=== PATIENT | female | born 1955 | race Asian ===

== ENCOUNTER 2017-07-31 08:08 | Outpatient (CLI) | payer OTHER ==
[~2017-07-31 08:08] MED LIST: ACET5TAB36 PO; CLOP75TA2 PO; CYCL10TA35 PO; FURO40TA93 PO; METO100T37 PO; SIMV40TA57
== END 2017-07-31 23:33 | disposition home or self-care (01) ==
LOC: MAMMO 08:08
DX: Z12.31 Encounter for screening mammogram for malignant neoplasm of breast (principal)

== ENCOUNTER 2017-09-29 11:15 | Outpatient (CLI) | payer OTHER ==
[2017-09-29 11:38] LABS: PLATELET COUNT 219 K/uL (152-353)
[2017-09-29 11:53] LABS: POTASSIUM 4.4 mmol/L (3.6-5.2)
[2017-09-29 12:25] LABS: PARTIAL THROMBOPLASTIN TIME 22.2 SECONDS (24.5-33.6)
== END 2017-09-29 20:02 | disposition home or self-care (01) ==
LOC: LABW 11:15
PROVIDERS: Family Medicine
DX: R58 Hemorrhage, not elsewhere classified (principal); I10 Essential (primary) hypertension; R79.1 Abnormal coagulation profile; R79.89 Other specified abnormal findings of blood chemistry
CPT/HCPCS: 36415; 80053; 81000; 83540; 83550; 85027; 85610; 85730

== ENCOUNTER 2017-10-30 11:51 | Outpatient (CLI) | payer OTHER | END 2017-10-30 19:27 | disposition home or self-care (01) | LOC: US 11:51 | DX: M79.601 Pain in right arm (principal) ==

== ENCOUNTER 2018-07-19 08:28 | Outpatient (CLI) | payer OTHER | END 2018-07-19 18:58 | disposition home or self-care (01) | LOC: CT 08:28 | DX: R07.1 Chest pain on breathing (principal) | CPT/HCPCS: 36415; 82565; 84520; Q9963 ==

== ENCOUNTER 2018-08-19 09:18 | Outpatient (CLI) | payer OTHER | END 2018-08-19 23:16 | disposition home or self-care (01) | LOC: MAMMO 09:18 | DX: Z12.31 Encounter for screening mammogram for malignant neoplasm of breast (principal) ==

== ENCOUNTER 2018-12-29 10:03 | Outpatient (CLI) | payer OTHER | END 2018-12-29 23:46 | disposition home or self-care (01) | LOC: RESP 10:03 | DX: R06.02 Shortness of breath (principal) | CPT/HCPCS: 93005 ==

== ENCOUNTER 2019-04-26 12:37 | Outpatient (CLI) | payer OTHER | END 2019-04-26 20:13 | disposition home or self-care (01) | LOC: NM 12:37 | DX: R10.11 Right upper quadrant pain (principal) | CPT/HCPCS: A9537 ==

== ENCOUNTER 2019-06-09 07:09 | Outpatient (CLI) | payer OTHER | END 2019-06-09 19:10 | disposition home or self-care (01) | LOC: RAD 07:09 | DX: J43.2 Centrilobular emphysema (principal) ==

== ENCOUNTER 2019-08-30 08:03 | Outpatient (CLI) | payer OTHER | END 2019-08-30 19:58 | disposition home or self-care (01) | LOC: MAMMO 08:03 | DX: Z12.31 Encounter for screening mammogram for malignant neoplasm of breast (principal) ==

== ENCOUNTER 2020-09-10 09:11 | Outpatient (CLI) | payer OTHER | END 2020-09-10 19:20 | disposition home or self-care (01) | LOC: MAMMO 09:11 → RAD 09:11 → MAMMO 09:30 | PROVIDERS: ATTEND Internal Medicine Pulmonary Disease | DX: Z12.31 Encounter for screening mammogram for malignant neoplasm of breast (principal); J43.2 Centrilobular emphysema ==

== ENCOUNTER 2021-10-21 10:08 | Outpatient (CLI) | payer OTHER | END 2021-10-21 19:09 | disposition home or self-care (01) | LOC: MAMMO 10:08 | PROVIDERS: ATTEND Nurse Practitioner Family | DX: Z12.31 Encounter for screening mammogram for malignant neoplasm of breast (principal) ==

== ENCOUNTER 2022-01-13 08:32 | Outpatient (CLI) | payer OTHER | END 2022-01-13 19:47 | disposition home or self-care (01) | LOC: RAD 08:32 | PROVIDERS: ATTEND Physician Assistant | DX: J43.2 Centrilobular emphysema (principal) ==

== ENCOUNTER 2022-05-06 10:34 | Outpatient (CLI) | payer OTHER | END 2022-05-06 20:31 | disposition home or self-care (01) | LOC: RAD 10:34 | PROVIDERS: ATTEND Nurse Practitioner Family | DX: M25.561 Pain in right knee (principal) ==

== ENCOUNTER 2022-10-23 08:09 | Outpatient (CLI) | payer OTHER | END 2022-10-23 18:59 | disposition home or self-care (01) | LOC: MAMMO 08:09 | PROVIDERS: ATTEND Obstetrics & Gynecology | DX: Z78.0 Asymptomatic menopausal state (principal); Z12.31 Encounter for screening mammogram for malignant neoplasm of breast ==

== ENCOUNTER 2023-04-24 08:51 | Outpatient (CLI) | payer OTHER | END 2023-04-24 18:58 | disposition home or self-care (01) | LOC: RAD 08:51 | PROVIDERS: ATTEND Physician Assistant | DX: J43.2 Centrilobular emphysema (principal) ==